=== PATIENT | male | born 1940 | race Caucasian/White ===

== ENCOUNTER 2017-02-14 22:43 | Emergency (ER) | payer MEDICARE, OTHER ==
[~2017-02-14] VITALS: Ht 172.7 cm; Wt 88.4 kg
[2017-02-14 22:43] VITALS: Ht 172.7 cm; Wt 88.4 kg
[~2017-02-14 22:43] MED LIST: ASPI-664 PO; GEMF600T PO; LISI-523 PO; TICA90TA PO
[2017-02-14] MEDS ORDERED: IOHEXOL 300MG/ML 150 ML BTL ONE ×2 (22:54→23:33)
[2017-02-14] MEDS ORDERED: SOD CHLORIDE 0.9% 100 ML ONE ×2 (22:54→23:33)
[2017-02-14 22:58] LABS: BASOPHILS % 0.4 % (0.0-2.0); EOSINOPHILS % 0.4 % (0.0-7.0); HEMOGLOBIN 14.8 g/dl (14.0-18.0); LYMPHOCYTES % 25.6 % (15.0-51.0); MEAN CORPUSCULAR HEMOGLOBIN 33.6 pg (29.0-33.0); MEAN CORPUSCULAR VOLUME 90.7 fl (82.0-101.0); MONOCYTE # 0.5 10^3/ul (0.3-0.9); MONOCYTES % 6.8 % (0.0-11.0); NEUTROPHILS % 66.5 % (39.0-77.0); PLATELET COUNT 140 10^3/UL (140-415); POSITIVE DIFF @See below; RED BLOOD COUNT 4.41 10^6/ul (4.70-6.10); RED CELL DISTRIBUTION WIDTH 12.3 % (11.5-14.5); WHITE BLOOD COUNT 7.7 10^3/ul (4.8-10.8)
[2017-02-14 23:10] LABS: MEAN PLATELET VOLUME 9.2 fl (7.4-10.4)
--- NOTE | 2017-02-14 23:11 | RADRPT ---
AMENDMENT: 02/24/2017 11:06:46 PM Toshia Chisholm M.D One or more of the following dose reduction techniques were used: - Automated exposure control. - Adjustment of the mA and/or kV according to patient size. - Use of iterative reconstruction technique. PROCEDURE: CT HEAD WITHOUT CONTRAST: CLINICAL INDICATION: 76 years of age, male. Stroke code. Expressive aphasia. COMPARISON: None available. TECHNIQUE: CT of the head was performed without IV contrast. Sagittal and coronal reformations were constructed. Dose information: The estimated radiation dose (CTDI vol mGy) for each series in this exam is 45 . The estimated cumulative dose (DLP mGy-cm) is 810 . FINDINGS: Parenchyma: Negative for acute intracranial hemorrhage, significant mass effect or midline shift. There are nonspecific patchy low density changes in the supratentorial deep white matter that are no nspecific but likely due to chronic small vessel ischemia. Negative for evidence of large territoria l avascular infarct on CT. Mild diffuse cerebral tissue loss. Mild intracranial atherosclerosis inv olving the cavernous carotid arteries. Negative for hyperdense thrombus. Ventricles and extra-axial spaces: Prominence of the ventricles proportionate to the sulci in keepin g with cerebral tissue loss. No abnormal extra-axial fluid collections are identified. Visualized paranasal sinuses: Clear. Mastoid air cells: Clear. Bones: No focal abnormality. Additional comment: None. IMPRESSION: 1. Negative for acute intracranial hemorrhage or significant mass effect. Negative for CT evidence of large territory vascular infarct. 2. Nonspecific patchy low density changes in the supratentorial deep white matter are nonspecific b ut likely due to chronic small vessel ischemia. If there is concern for recent ischemia, consider MR I brain for further evaluation. 3. Intracranial atherosclerosis. Findings were discussed with Dr. Aly Rondon by Dr. Toshia Chisholm on February 14, 2017 at 11:05 PM. RPTAT: HCTS Conner Chisholm Physician Date Time Electronically viewed and signed by Conner Chisholm Physician on 02/24/2017 23:07 CS/
[2017-02-14 23:17] LABS: ALANINE AMINOTRANSFERASE 42 IU/L (13-69); ALBUMIN 4.4 g/dl (3.3-4.9); ALBUMIN/GLOBULIN RATIO 1.46; ALKALINE PHOSPHATASE 85 IU/L (42-121); ANION GAP 13 (8-16); ASPARTATE AMINO TRANSFERASE 40 IU/L (15-46); BILIRUBIN,INDIRECT 0.5 mg/dl (0-1.1); BILIRUBIN,TOTAL 0.5 mg/dl (0.2-1.3); BLOOD UREA NITROGEN 14 mg/dl (7-20); CARBON DIOXIDE 28 mmol/L (21-31); CHLORIDE 102 mmol/L (97-110); CREATININE 0.98 mg/dl (0.61-1.24); GLUCOSE 148 mg/dl (70-220); POTASSIUM 4.6 mmol/L (3.5-5.1); SODIUM 138 mmol/L (135-144); TOTAL PROTEIN 7.4 g/dl (6.1-8.1)
[2017-02-14 23:18] LABS: ETHANOL < 10.0 mg/dl
--- NOTE | 2017-02-14 23:19 | RADRPT ---
PROCEDURE: XR Chest. CLINICAL INDICATION: Cerebrovascular accident. TECHNIQUE: Single frontal view. COMPARISON: 03/10/2015. FINDINGS: The lungs are clear. The heart is enlarged. There is no pleural effusion. There is no pneumothorax. IMPRESSION: 1. Cardiomegaly. 2. Clear lungs. RPTAT: QQ .Vernon Benedict MD, MD Date Time Electronically viewed and signed by .Vernon Benedict MD, MD on 02/14/2017 23:19 .R/
[2017-02-14 23:24] LABS: INR 0.92; PROTIME 12.4 Sec (12.2-14.2)
[2017-02-14 23:25] LABS: PARTIAL THROMBOPLASTIN TIME 24.2 Sec (25.0-35.0)
[2017-02-14 23:35] LABS: TROPONIN-I < 0.012 ng/ml (0.00-0.12)
--- NOTE | 2017-02-14 23:38 | RADRPT ---
AMENDMENT: 02/25/2017 12:44:09 AM Toshia Chisholm M.D One or more of the following dose reduction techniques were used: Automated exposure control. Adjustment of the mA and/or kV according to patient size. Use of iterative reconstruction technique. 3-D post processing was performed in maximum intensity projection images were reconstructed on PACS. PROCEDURE: CTA head and neck. CLINICAL INDICATION: 76 years of age, male. Expressive aphasia. TECHNIQUE: A noncontrast CT the brain was performed. Subsequently, direct spiral 0.63 mm axial se ctions were obtained through the cervical and intracranial vasculature with the use of 100 mL of con trast. Axial MIP, coronal, and sagittal reformats were obtained. The images were reviewed on a PACS workstation. CTDI vol: 78 and 17 mGy. DLP: 713.5 mGy-cm. COMPARISON: CT head from the same day FINDINGS: BRAIN (POST-CONTRAST): Enhancement: No abnormal enhancement. Additional comment: None. CTA NECK/ EXTRACRANIAL ANGIOGRAM: Proximal great vessels: Normal cervical branching. No flow-limiting stenosis or dissection. No aneu rysm. Cervical vessels: No flow-limiting stenosis or dissection in the bilateral cervical carotid or verte bral arteries. Internal carotid arteries are tortuous that may be seen with hypertension. There is mild atherosclerosis at the left carotid bulb. Additional comment: None. CTA HEAD/ INTRACRANIAL ANGIOGRAM: Anterior circulation: No flow-limiting stenosis or aneurysm is identified. No vascular malformation is identified. Cavernous carotid arteries are ectatic. Left M1 segment bifurcates early. There is variant anterior cerebral artery anatomy. Posterior circulation: No flow-limiting stenosis or aneurysm is identified. No vascular malformation is identified. Dural venous sinuses: Patent. Additional comment: None. LUNG APICES: No significant abnormality. BONES: There are bulky anterior bridging osteophytes in the cervical spine and upper thoracic spine in keeping with DISH. IMPRESSION: 1. Negative for evidence of hemodynamically significant stenosis or occlusion of the major cervical or intracranial arteries. 2. Negative for evidence of dissection, aneurysm, or vascular malformation. Internal carotid arterie s are tortuous and cavernous carotid arteries are ectatic that may be seen with hypertension. 3. Negative for abnormal intraparenchymal enhancement. There are nonspecific low density changes in the supratentorial deep white matter. If there is concern for recent ischemia, consider brain MRI. Findings were discussed with Dr. Aly Rondon by Dr. Toshia Chisholm on February 14, 2017 at 11:30 p.m. . RPTAT: HCTS Conner Chisholm, Physician Date Time Electronically viewed and signed by Conner Chisholm, Physician on 02/25/2017 00:45 CS/
--- NOTE | 2017-02-14 23:41 | STROKE ---
Date/Time of Note Date/Time of Note DATE: 02/15/17 TIME: 02:34 Patient Information General Arrival Date Age 76 Gender male Weight 88.4 kg Vital Signs Vital Signs Vital Signs Date Time Temp Pulse Resp B/P Pulse Ox O2 Delivery O2 Flow Rate FiO2 02/14/17 22:43 97.5 80 12 153/100 98 Patient History Past Medical History None Past Surgical History None Current Medications Anti-Coagulants: None Anti-Platelets: ASA 81mg Allergies: Coded Allergies: No Known Allergies (Unverified Allergy, Unknown, 03/10/15) Labs Hematology Labs Hematology Test 02/14/17 22:50 White Blood Count 7.710^3/ul (4.8-10.8) Red Blood Count 4.4110^6/ul (4.70-6.10) Hemoglobin 14.8g/dl (14.0-18.0) Hematocrit 40.0% (42.0-52.0) Mean Corpuscular Volume 90.7fl (82.0-101.0) Mean Corpuscular Hemoglobin 33.6pg (29.0-33.0) Mean Corpuscular Hemoglobin Concent 37.0g/dl (32.0-37.0) Red Cell Distribution Width 12.3% (11.5-14.5) Platelet Count 73099^3/UL (140-415) Mean Platelet Volume 9.2fl (7.4-10.4) Neutrophils % 66.5% (39.0-77.0) Lymphocytes % 25.6% (15.0-51.0) Monocytes % 6.8% (0.0-11.0) Eosinophils % 0.4% (0.0-7.0) Basophils % 0.4% (0.0-2.0) Nucleated Red Blood Cells % 0.0/100WBC (0.0-0.0) Neutrophils # (Manual) 510^3/ul (1.7-7.5) Lymphocytes # 2.010^3/ul (0.8-2.9) Monocytes # 0.510^3/ul (0.3-0.9) Eosinophils # 0.010^3/ul (0.0-0.5) Basophils # 0.010^3/ul (0.0-0.1) Nucleated Red Blood Cells # 0.010^3/ul (0.0-0.0) Chemistry Labs Chemistry Test 02/14/17 22:50 02/14/17 23:09 Sodium Level 138mmol/L (135-144) Potassium Level 4.6mmol/L (3.5-5.1) Chloride Level 102mmol/L (97-110) Carbon Dioxide Level 28mmol/L (21-31) Anion Gap 13 (8-16) Blood Urea Nitrogen 14mg/dl (7-20) Creatinine 0.98mg/dl (0.61-1.24) Glucose Level 148mg/dl (70-220) Hemoglobin A1c 5.2% (0-5.9) Calcium Level 9.0mg/dl (8.4-10.2) Total Bilirubin 0.5mg/dl (0.2-1.3) Direct Bilirubin 0.00mg/dl (0.00-0.20) Indirect Bilirubin 0.5mg/dl (0-1.1) Aspartate Amino Transf (AST/SGOT) 40IU/L (15-46) Alanine Aminotransferase (ALT/SGPT) 42IU/L (13-69) Alkaline Phosphatase 85IU/L (42-121) Total Protein 7.4g/dl (6.1-8.1) Albumin 4.4g/dl (3.3-4.9) Globulin 3.00g/dl (1.3-3.2) Albumin/Globulin Ratio 1.46 Bedside Glucose 150mg/dL (70-220) Coagulation Labs: Coagulation Test 02/14/17 22:50 Prothrombin Time 12.4Sec (12.2-14.2) Prothrombin Time Ratio 1.0 INR International Normalized Ratio 0.92 Activated Partial Thromboplast Time 24.2Sec (25.0-35.0) History & Physical History of Present Illness 76 yo M with no PMH presents with onset of speech arrest at 10 pm. Baseline function is wnl. No prior h/o stroke or IPH. No trauma. No recent illness. No motor impairment. Onset of symptoms observed. CT head without acute findings. CTA without large vessel occlusion. No prior similar episodes. BG wnl. Chemistry and CBC wnl. No fever. Hx per interpretor. Review of Systems All Other Systems: Reviewed and Negative NIH Stroke Scale NIH Stroke Scale 1A - Level of Conciousness: 0 - Alert keenly [id number] LOC Questions: 1 - Anwers one question2 - Best Gaze: 0 - Normal3 - Visual: 0 - No visual loss4 - Facial Palsy: 0 - No visual loss5A - Motor Arm - Left: 0 - No [id number] - Motor Arm - Right: 0 - No wahga4M - Motor Leg - Left: 0 - No axacz4P - Motor Leg - Right: 0 - No drift7 - Limb Ataxia: 0 - Absent8 - Sensory: 0 - Normal9 - Best Language: 3 - Mute or global aphasiaDysarthria: 2 - [id number] - Extinction and inattentio: 0 - No abnormality Date/Time Recorded DATE: 02/15/17 TIME: 02:34 Submitted By Joselito Cabrera t-PA Imaging Review Imaging Reviewed: Yes Date/Time Imaging Reviewed DATE: 02/15/17 TIME: 34 Reason Not Reviewed No acute findings Imaging Findings No acute findings Inclusion/Exclusion Criteria tPA recommended. t-PA Administration Weight 88.4 kg Bolus (mg): 7 t-PA Recommendation Date/Time 11:25 total dose 79 mg 7.9 mg over first minute. Remainder over 1 hour. Recommedation submitted by Joselito Cabrera Recommendations Impression Cause: Other Diagnosis Possible ischemic stroke IV tPA recommended Hydrate with saline No anti-platelets or anti-coagulants for 24 hours Hold tPA for bleeding, neurologic detrioration, BP out of range, or new severe CASH and callme. MRI brain Admit to stroke unit Check HgA1C and lipid profile BP goal < 180 / 105 mm Hg Keep on tele Echo with bubble study JOSELITO CABRERA MD Feb 14, 2017 23:40
--- NOTE | 2017-02-14 23:54 | ERA ---
ER Documentation Chief Complaint Date/Time DATE: 02/14/17 TIME: 23:49 Chief Complaint BIB RA FROM HOME W/ ALOC [id number] [employer]NAG[employer]IST HPI This is a 76-year-old Lebanese-speaking male who arrives via EMS for potential stroke. History is provided that approximately 30 minutes to 1 hour prior to arrival the patient stopped speaking and was minimally responsive. EMS reports that the patient was moving all 4 extremities and seemed to be responding to simple commands but could not speak. The family gives an onset around 9:42 PM. Initially I used a library monitor and later the family arrived. The patient could not verbally provide a response. In the remainder of HPI was limited. No report of falls seizures or trauma. ROS All systems reviewed and are negative except as per history of present illness. Medications Home Meds Active Scripts Lisinopril* (Zestril*) 5 Mg Tablet, 5 MG PO DAILY, #30 TAB Prov:MIGUEL LIAO 03/12/15 Ticagrelor* (Brilinta*) 90 Mg Tablet, 90 MG PO BID, #60 Prov:MIGUEL LIAO 03/12/15 Gemfibrozil* (Lopid*) 600 Mg Tab, 600 MG PO BID, #60 Prov:MIGUEL LIAO 03/12/15 Reported Medications Aspirin* (Aspirin* EC) 81 Mg Tablet.dr, 81 MG PO DAILY, TAB 03/10/15 Allergies Allergies: Coded Allergies: No Known Allergies (Unverified Allergy, Unknown, 03/10/15) PMhx/Soc History of Surgery: Yes (2 STENTS) Anesthesia Reaction: No Hx Neurological Disorder: No Hx Respiratory Disorders: No Hx Cardiac Disorders: Yes (HYPERCHOLESTEROLEMIA AND HYPERTENSION.) Hx Psychiatric Problems: No Hx Miscellaneous Medical Probl: No Hx Alcohol Use: Yes (SOCIALLY) Hx Substance Use: No Hx Tobacco Use: No Smoking Status: Never smoker FmHx Family History: No diabetes Physical Exam Vitals Vital Signs Date Time Temp Pulse Resp B/P Pulse Ox O2 Delivery O2 Flow Rate FiO2 02/15/17 00:25 74 12 136/92 98 02/15/17 00:10 68 10 135/93 97 02/14/17 23:55 70 10 140/93 97 02/14/17 23:40 66 11 146/96 97 02/14/17 22:43 97.5 80 12 153/100 98 Physical Exam General: Well developed, well nourished, no acute distress Head: Normocephalic, atraumatic. Eyes: Pupils equally reactive, EOM intact ENT: Moist mucous membranes Neck: Supple, no lymphadenopathy Respiratory: Lungs clear bilaterally, no distress Cardiovascular: RRR, no murmurs, rubs, or gallops Abdominal: Soft, non-tender, non-distended, no peritoneal signs : Deferred MSK: No edema, no unilateral swelling, 4/5 strength Neurologic: Alert and following simple commands but has expressive aphasia, moving all extremities with generalized weakness, expressive aphasia, no focal weakness, no cerebellar signs Skin: No rash Psych: Normal mood Result Diagram: 02/14/17224902/14/172249 Results 24 hrs Laboratory Tests Test 02/14/17 22:50 02/14/17 23:09 White Blood Count 7.710^3/ul Red Blood Count 4.4110^6/ul Hemoglobin 14.8g/dl Hematocrit 40.0% Mean Corpuscular Volume 90.7fl Mean Corpuscular Hemoglobin 33.6pg Mean Corpuscular Hemoglobin Concent 37.0g/dl Red Cell Distribution Width 12.3% Platelet Count 17292^3/UL Mean Platelet Volume 9.2fl Neutrophils % 66.5% Lymphocytes % 25.6% Monocytes % 6.8% Eosinophils % 0.4% Basophils % 0.4% Nucleated Red Blood Cells % 0.0/100WBC Neutrophils # (Manual) 510^3/ul Lymphocytes # 2.010^3/ul Monocytes # 0.510^3/ul Eosinophils # 0.010^3/ul Basophils # 0.010^3/ul Nucleated Red Blood Cells # 0.010^3/ul Prothrombin Time 12.4Sec Prothrombin Time Ratio 1.0 INR International Normalized Ratio 0.92 Activated Partial Thromboplast Time 24.2Sec Sodium Level 138mmol/L Potassium Level 4.6mmol/L Chloride Level 102mmol/L Carbon Dioxide Level 28mmol/L Anion Gap 13 Blood Urea Nitrogen 14mg/dl Creatinine 0.98mg/dl Glucose Level 148mg/dl Hemoglobin A1c 5.2% Calcium Level 9.0mg/dl Total Bilirubin 0.5mg/dl Direct Bilirubin 0.00mg/dl Indirect Bilirubin 0.5mg/dl Aspartate Amino Transf (AST/SGOT) 40IU/L Alanine Aminotransferase (ALT/SGPT) 42IU/L Alkaline Phosphatase 85IU/L Troponin I < 0.012ng/ml Total Protein 7.4g/dl Albumin 4.4g/dl Globulin 3.00g/dl Albumin/Globulin Ratio 1.46 Ethyl Alcohol Level < 10.0mg/dl Bedside Glucose 150mg/dL Current Medications Medications (Trade) Dose Ordered Sig/Jose Route PRN Reason Start Time Stop Time Status Last Admin Dose Admin Alteplase, Recombinant (Activase) 8 mg BOLUS OVER 1 MIN ONCE IV* 02/15/17 00:00 02/15/17 00:01 DC 02/14/17 23:39 Alteplase, Recombinant 71.6 mg 71.6 mg ISCHEMIC STROKE ONCE IV* 02/15/17 00:00 02/15/17 00:01 DC 02/14/17 23:40 Sodium Chloride (NS) 50 ml @ 0 mls/hr FLUSH AFTER TPA ONCE IV 02/15/17 00:00 02/15/17 00:01 DC IV Flush 10 ml 10 ml STK-MED ONCE .ROUTE 02/14/17 23:33 02/14/17 23:34 DC 02/14/17 23:35 Sodium Chloride (NS) 100 ml @ ud STK-MED ONCE .ROUTE 02/14/17 23:33 02/14/17 23:34 DC 02/14/17 23:35 Iohexol (Omnipaque 300mg/ ml) 150 ml STK-MED ONCE .ROUTE 02/14/17 23:33 02/14/17 23:34 DC 02/14/17 23:34 Procedures/MDM EKG, MONITORS, & DIAGNOSTIC IMAGING: EKG: I reviewed and interpreted a 12-lead EKG. Rhythm: Normal sinus rhythm Ectopy: None Arrhythmia: None Intervals: No abnormalities ST segments: No elevations or depressions T waves: No contiguous inversions Interpretation: No acute cardiac ischemia Chest x-ray: I reviewed and interpreted a 1 view of the chest Mediastinum: No enlargement Cardiac silhouette: No cardiomegaly Airspace: Clear lung cui bilaterally without evidence of pneumothorax Bones: No evidence of fracture Interpretation: No acute cardiopulmonary process CT Brain: No evidence of acute intracranial process per radiology CTA Head and Neck: No evidence of flow related stenosis or thrombus per radiology LAB INTERPRETATION: No coagulopathy MEDICAL DECISION MAKING: The patient presents with acute onset of neurologic change just prior to arrival with expressive aphasia. Otherwise the patient has mild global dysfunction. Unclear etiology. However, this is very concerning for stroke syndrome and a stroke code was activated. The patient does not have evidence of intoxication, trauma, fevers or chills. No alternative explanation, no evidence of seizure. ER COURSE: Stroke assessment and timing: Onset of symptoms: 9:42 PM Arrival to ED: 3 Stroke code activation: [address] scan: [address]: 2305 Initial neurology evaluation: 2312 Conversation(s) with neurology: 2315 NIHSS: 5 TPA decision-making: Given that the patient has acute onset of neurologic deficit within 1 hour presentation with no alternative explanation the patient is a TPA candidate. The risks, benefits, alternatives were discussed with the patient's family who verbalized understanding and provided informed consent along with Dr. Cabrera TPA bolus timin TPA drip timin Reevaluation after TPA: The patient continues to have global dysfunction but expressive aphasia, no interval change he continues to protect his airway Stroke neurologist on-call: Dr. Cabrera Critical Care Note: Total time: 52 minutes Indication/Organ System Threat: Acute neurologic deficit and stroke code activation that requires emergent evaluation and assessment to prevent neurologic compromising collapse. I spent the above amount of critical care time with the patient, not including billable procedures. This included chart review, consultations, repeat bedside evaluations, and titration of appropriate medications to prevent cardiopulmonary or respiratory collapse. The patient CTA does not show an evidence of an acute thrombus however potential transfer to a [facility] center would be reasonable. I reached out to [facility] who has refused the case given normal CTA. I will reach out to [facility]. I spoke to Dr. Malave, at [facility] who has accepted the patient at [phone]. Pending transfer at this time. The patient does not require airway protection prior to transfer as he is currently protecting his airway. Reevaluation at 12:13 AM the patient verbalized that he had to urinate. This is a clinical improvement. I kept the patient and/or family informed of laboratory and diagnostic imaging results throughout the emergency room course. DISPOSITION PLAN: Transfer to [facility] for comprehensive stroke care the benefits of transfer outweigh the risks. Family agrees. Departure Diagnosis: Primary Impression: Acute ischemic stroke Additional Impression: Expressive aphasia Condition: Stable GERALD ESPARZA MD Feb 14, 2017 23:52
[2017-02-15] MEDS ORDERED: ALTEPLASE (tPA) 1 MG/ML BOLUS SYG IV* ONE
[2017-02-15] MEDS ORDERED: ALTEPLASE 100 MG INJ IV* ONE
[2017-02-15] MEDS ORDERED: SOD CHLORIDE 0.9% 50 ML IV ONE
== END 2017-02-15 01:02 | disposition short-term general hospital (02) ==
LOC: E/R 22:43
DX: I63.9 Cerebral infarction, unspecified (principal); F80.1 Expressive language disorder; R40.2132 Coma scale, eyes open, to sound, at arrival to emergency department; R40.2222 Coma scale, best verbal response, incomprehensible words, at arrival to emergency department; R40.2362 Coma scale, best motor response, obeys commands, at arrival to emergency department; Z98.61 Coronary angioplasty status; Z79.82 Long term (current) use of aspirin
CPT/HCPCS: 36415; 37195; 70450; 70496; 70498; 71010; 80053; 80306; 82962; 83036; 84484; 85025; 85610; 85730; 93005; 99291; J2997; Q9967

== ENCOUNTER 2017-04-13 00:35 | Emergency (ER) | payer MEDICARE, OTHER ==
[~2017-04-13] VITALS: Ht 167.6 cm; Wt 87.0 kg
[2017-04-13 00:52] VITALS: Ht 167.6 cm; Wt 87.0 kg
--- NOTE | 2017-04-13 01:32 | ERD ---
ER Documentation Chief Complaint Chief Complaint Headache HPI The patient is a 77-year-old male, presenting to the ER because of high blood pressure, difficult to control. He complains that whenever his blood pressure is high he has headache. he complained of left-sided headache that began about 10 PM, he took his blood pressure, it was high therefore he took clonidine that bring down the blood pressure. He feels much better now. He denies any syncope , near syncope, dizziness, neck pain, chest pain, dyspnea, abdominal pain, vomiting He does not smoke nor drink. Past medical history: CAD, dyslipidemia, hypertension Past surgical history: Stent PCI ROS All systems reviewed and are negative except as per history of present illness. Medications Home Meds Reported Medications Clopidogrel Bisulfate* (Clopidogrel Bisulfate*) 75 Mg Tablet, 75 MG PO DAILY, # 30 TAB 04/13/17 Atorvastatin* (Atorvastatin*) 80 Mg Tablet, 80 MG PO QHS, #30 TAB 04/13/17 Allergies Allergies: Coded Allergies: No Known Allergies (Unverified Allergy, Unknown, 03/10/15) PMhx/Soc History of Surgery: Yes (2 STENTS) Anesthesia Reaction: No Hx Neurological Disorder: No Hx Respiratory Disorders: No Hx Cardiac Disorders: Yes (HYPERCHOLESTEROLEMIA AND HYPERTENSION.) Hx Psychiatric Problems: No Hx Miscellaneous Medical Probl: No Hx Alcohol Use: Yes (SOCIALLY) Hx Substance Use: No Hx Tobacco Use: No Physical Exam Vitals Vital Signs Date Time Temp Pulse Resp B/P Pulse Ox O2 Delivery O2 Flow Rate FiO2 04/13/17 02:10 98.3 20 119/83 98 Room Air 04/13/17 00:52 97.8 88 20 138/94 98 Physical Exam Const: No acute distress. Head: Atraumatic. Eyes: Normal Conjunctiva. ENT: Normal External Ears, Nose and Mouth. Neck: Full range of motion. No meningismus. Resp: Clear to auscultation bilaterally. Cardio: Regular rate and rhythm. Abd: Soft, non distended, normal bowel sounds, non tender. Skin: No petechiae or rashes. Back: No midline or flank tenderness. Ext: No cyanosis, or edema. Neur: Awake and alert. No focal deficit Psych: Normal Mood and Affect. Result Diagram: 04/13/17 0250 04/13/17 0250 Results 24 hrs Laboratory Tests Test 04/13/17 02:50 White Blood Count 5.010^3/ul Red Blood Count 3.8910^6/ul Hemoglobin 13.1g/dl Hematocrit 35.4% Mean Corpuscular Volume 91.0fl Mean Corpuscular Hemoglobin 33.7pg Mean Corpuscular Hemoglobin Concent 37.0g/dl Red Cell Distribution Width 11.9% Platelet Count 99311^3/UL Mean Platelet Volume 8.9fl Neutrophils % 53.5% Lymphocytes % 36.1% Monocytes % 9.0% Eosinophils % 0.8% Basophils % 0.4% Nucleated Red Blood Cells % 0.0/100WBC Neutrophils # 2.710^3/ul Lymphocytes # 1.810^3/ul Monocytes # 0.510^3/ul Eosinophils # 0.010^3/ul Basophils # 0.010^3/ul Nucleated Red Blood Cells # 0.010^3/ul Prothrombin Time 13.7Sec Prothrombin Time Ratio 1.1 INR International Normalized Ratio 1.05 Activated Partial Thromboplast Time 29.2Sec Sodium Level 141mmol/L Potassium Level 3.7mmol/L Chloride Level 108mmol/L Carbon Dioxide Level 24mmol/L Anion Gap 13 Blood Urea Nitrogen 16mg/dl Creatinine 0.82mg/dl Glucose Level 96mg/dl Calcium Level 8.5mg/dl [facility] [id number] Radiology Main Line: [phone] DIAGNOSTIC IMAGING REPORT Patient: YONATHAN LAUREANO : 1940 Age: 77 Sex: M [id number] [id number] DOS: 04/13/17 0139 Ordering MD: KATHY MOCTEZUMA MD Location: E/R Room/Bed: PROCEDURE: CT BRAIN WITHOUT CONTRAST CLINICAL INDICATION: 77-year-old male with dizziness. TECHNIQUE: The study was performed utilizing [employer] VCT 64-slice CT scanner. Direct axial sections were obtained from the foramen magnum to the vertex without the use of intravenous contrast material. Sagittal and coronal reformations were obtained. One or more the following dose reduction techniques were utilized: automated exposure control, adjustment of the mA and/or kV according to patient's size or use of iterative reconstruction technique. The images were viewed on a PACS workstation. CTD/vol = 45.0 mGy; Total Exam DLP = 720.2 mGy-cm. COMPARISON: CT brain February 14, 2017. FINDINGS: There is mild degree of diffuse cortical and central atrophy with compensatory ventricular enlargement. There is no evidence for mass effect or midline shift. There are periventricular areas of decreased density consistent with microangiopathic ischemic changes. There is a small old lacunar infarct identified within the left putamen. There is no evidence for acute intra or extra-axial blood. Calcifications are seen within the intracranial carotid arteries bilaterally. The bony calvarium is intact. There is minimal mucosal thickening within the ethmoid air cells bilaterally and left maxillary sinus. No air-fluid levels are noted. The mastoid air cells are without significant soft tissue. IMPRESSION: 1. Mild diffuse atrophy. 2. Microangiopathic ischemic changes. 3. 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 4. Vascular calcifications. 5. Minimal mucosal thickening ethmoid air cells and left maxillary sinus. .Estevan Lopez MD, MD Date Time Electronically viewed and signed by .Estevan Lopez MD, MD on 04/13/2017 02:41 .M/ CC: KATHY MOCTEZUMA MD EKG: Read by emergency physician Rate/Rhythm: Sinus bradycardia 54 beats/min QRS, ST, T-waves: No ST elevation, no T inversion, Low voltage Impression: Abnormal EKG . MEDICAL MAKING DECISION: The patient is a 77-year-old male, presenting to the ER because of accelerated hypertension that is associated with acute cephalgia. He denies any symptoms now. He is stable for outpatient follow-up The differential diagnoses considered include but are not limited to subarachnoid hemorrhage, occult trauma, CVA, meningitis, encephalitis, hypertension, tension, migraine, cluster, narcotic withdrawal, cervical spine disease. Departure Diagnosis: Primary Impression: Headache Additional Impression: Anemia Condition: Good Comments I discussed the findings with the patient. I advised the patient to follow-up with the primary physician in about 1-2 days, sooner if needed and return if any concern. KATHY MOCTEZUMA MD Apr 13, 2017 01:32
[2017-04-13 02:10] VITALS: TEMP 98.3
[2017-04-13] MEDS ORDERED: CLOP75TA4 PO (02:12)
[2017-04-13] MEDS ORDERED: ATOR80TA75 PO (02:12)
--- NOTE | 2017-04-13 02:41 | RADRPT ---
PROCEDURE: CT BRAIN WITHOUT CONTRAST CLINICAL INDICATION: 77-year-old male with dizziness. TECHNIQUE: The study was performed utilizing [employer] VCT 64-slice CT scanner. Direct axial sections were obtained from the foramen magnum to the vertex without the use of intravenous contrast material. Sagittal and coronal reformations were obtained. One or more the following dose reduction techniques were utilized: automated exposure control, adjustment of the mA and/or kV according to p atient's size or use of iterative reconstruction technique. The images were viewed on a PACS worksta tion. CTD/vol = 45.0 mGy; Total Exam DLP = 720.2 mGy-cm. COMPARISON: CT brain February 14, 2017. FINDINGS: There is mild degree of diffuse cortical and central atrophy with compensatory ventricular enlargeme nt. There is no evidence for mass effect or midline shift. There are periventricular areas of decr eased density consistent with microangiopathic ischemic changes. There is a small old lacunar infarc t identified within the left putamen. There is no evidence for acute intra or extra-axial blood. Barak cifications are seen within the intracranial carotid arteries bilaterally. The bony calvarium is int act. There is minimal mucosal thickening within the ethmoid air cells bilaterally and left maxillary sinus. No air-fluid levels are noted. The mastoid air cells are without significant soft tissue. IMPRESSION: 1. Mild diffuse atrophy. 2. Microangiopathic ischemic changes. 3. 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 4. Vascular calcifications. 5. Minimal mucosal thickening ethmoid air cells and left maxillary sinus. .Estevan Lopez MD, Date Time Electronically viewed and signed by .Estevan Lopez MD, MD on 04/13/2017 02:41 .Jocelyne
[2017-04-13 03:03] LABS: BASOPHILS % 0.4 % (0.0-2.0); EOSINOPHILS % 0.8 % (0.0-7.0); HEMATOCRIT 35.4 % (42.0-52.0); HEMOGLOBIN 13.1 g/dl (14.0-18.0); LYMPHOCYTES # 1.8 10^3/ul (0.8-2.9); LYMPHOCYTES % 36.1 % (15.0-51.0); MEAN CORPUSCULAR HEMOGLOBIN 33.7 pg (29.0-33.0); MEAN PLATELET VOLUME 8.9 fl (7.4-10.4); MONOCYTE # 0.5 10^3/ul (0.3-0.9); NEUTROPHIL # 2.7 10^3/ul (1.6-7.5); NEUTROPHILS % 53.5 % (39.0-77.0); PLATELET COUNT 133 10^3/UL (140-415); RED BLOOD COUNT 3.89 10^6/ul (4.70-6.10); RED CELL DISTRIBUTION WIDTH 11.9 % (11.5-14.5)
[2017-04-13 03:21] LABS: INR 1.05; PROTIME 13.7 Sec (12.2-14.2); PT RATIO 1.1
[2017-04-13 03:22] LABS: PARTIAL THROMBOPLASTIN TIME 29.2 Sec (25.0-35.0)
[2017-04-13 03:25] LABS: CALCIUM 8.5 mg/dl (8.4-10.2); CREATININE 0.82 mg/dl (0.61-1.24); POTASSIUM 3.7 mmol/L (3.5-5.1)
[2017-04-13 04:29] VITALS: BP 113/80; PULSE 60; RESP 18
== END 2017-04-13 04:29 | disposition home or self-care (01) ==
LOC: E/R 00:35
DX: R51 Headache (principal); R40.2252 Coma scale, best verbal response, oriented, at arrival to emergency department; D64.9 Anemia, unspecified; I10 Essential (primary) hypertension; I25.10 Atherosclerotic heart disease of native coronary artery without angina pectoris; R40.2142 Coma scale, eyes open, spontaneous, at arrival to emergency department; R40.2362 Coma scale, best motor response, obeys commands, at arrival to emergency department; R07.9 Chest pain, unspecified
CPT/HCPCS: 70450; 80048; 85025; 85610; 85730; 93005

== ENCOUNTER 2018-09-11 07:38 | Observation (INO) | payer MEDICARE, OTHER ==
[2018-09-11] VITALS (30 sets, daily range): BP systolic 111–135; BP diastolic 72–92; PULSE 46–73; RESP 14–25; Ht 162.6 cm; Wt 86.4 kg
[~2018-09-11] VITALS: Ht 162.6 cm; Wt 86.4 kg
[~2018-09-11 07:38] MED LIST changes: -ASPI-664 PO; +ATOR-2 PO; +CLOP75TA19 PO; +DIAZEPAM 5 MG TAB PO SCH; +DIPHENHYDRAMINE 50 MG CAP PO SCH; +FAMOTIDINE 20 MG TAB PO SCH; -GEMF600T PO; -LISI-523 PO; +SOD CHLORIDE 0.45% 1,000 ML IV SCH; -TICA90TA PO
[2018-09-11] MEDS ORDERED: CLON-379 PO (08:35)
[2018-09-11] MEDS ORDERED: AMLO5TAB4 PO (08:35)
[2018-09-11] MEDS ORDERED: ASPI-817 PO (08:35)
[2018-09-11] MEDS ORDERED: ALPR0.5T PO (08:35)
[2018-09-11] MEDS ORDERED: CLOP75TA27 PO (08:35)
[2018-09-11] MEDS ORDERED: PREL60L PO (08:35)
[2018-09-11] MEDS ORDERED: METO-335 PO (08:35)
[2018-09-11] MEDS ORDERED: LIDOCAINE 1% (MDV) 20 ML INJ ONE (08:50)
[2018-09-11] MEDS ORDERED: IODIXANOL LOCM 100 ML BTL ONE ×3 (08:50→10:46)
[2018-09-11] MEDS ORDERED: MIDAZOLAM 1 MG/ML 2 ML INJ ONE (08:51)
[2018-09-11] MEDS ORDERED: HEPARIN 1000 UNITS/ML 10 ML INJ ONE (08:51)
[2018-09-11] MEDS ORDERED: VERAPAMIL 5 MG INJ ONE (08:52)
[2018-09-11] MEDS ORDERED: NITROGLYCERIN (IC) 100 MCG/ML INJ ONE (08:52)
[2018-09-11] MEDS ORDERED: FENTAnyl 50 MCG/ML VIAL ONE (08:52)
[2018-09-11] MEDS ORDERED: CLOPIDOGREL 75 MG TAB ONE (10:51)
[2018-09-11] MEDS ORDERED: SOD CHLORIDE 0.9% 1,000 ML IV SCH (11:06)
--- NOTE | 2018-09-11 11:06 | SIPON ---
Date/Time of Note Date/Time of Note DATE: 09/11/18 TIME: 11:05 Operative Report Preoperative Diagnosis 1.chest pain Postoperative Diagnosis 1.obstructive cad s/p stent x 1 to LAD and x 2 to LCX Operation/Procedure Performed 1.[facility] 2.PTCa/stent x 1 to LAD and x 2 to LCX Surgeon see signature line contract administrative assistant 1.[place]ris Anesthesia: moderate sedation Estimated blood loss: minimal Transfusion Required none Specimen none Grafts/Implants none Complications none CAMERON MEDINA Sep 11, 2018 11:06
[2018-09-11] MEDS ORDERED: AL HYDROX/MG HYDROX/SIMETH 30 ML CUP PO PRN (11:30)
[2018-09-11] MEDS ORDERED: ACETAMINOPHEN 325 MG TAB PO PRN (11:30)
[2018-09-11] MEDS ORDERED: OXYCODONE/ACETAMINOPHEN (5/325) TAB PO PRN (11:30)
[2018-09-11] MEDS ORDERED: ZOLPIDEM 5 MG TAB PO PRN (11:30)
[2018-09-11] MEDS ORDERED: ONDANSETRON 4 MG INJ IV PRN (11:30)
--- NOTE | 2018-09-11 15:34 | RADRPT ---
Vent Rate: 58 bpm RR Interval: 0 msec NE Interval: 212 msec QRS Duration: 80 msec QT Interval: 438 msec QTC Interval: 429 msec P-R-T [place]: 39 - 15 - 59 degrees Sinus bradycardia with sinus arrhythmia with 1st degree AV block Otherwise normal ECG Electronically Signed By: Mook Kang
--- NOTE | 2018-09-11 15:34 | RADRPT ---
Vent Rate: 57 bpm RR Interval: 0 msec AL Interval: 200 msec QRS Duration: 82 msec QT Interval: 402 msec QTC Interval: 391 msec P-R-T [place]: 37 - 27 - 45 degrees Sinus bradycardia Otherwise normal ECG Electronically Signed By: Mook Kang
--- NOTE | 2018-09-11 18:59 | CARRPT ---
DATE OF PROCEDURE: 09/11/2018 TYPE OF PROCEDURE: 1. Left heart catheterization. 2. Coronary angiography. 3. Percutaneous transluminal coronary angioplasty with placement of Synergy drug-eluting stent x1 to proximal LAD, 3.5 x 16 mm. 4. Percutaneous transluminal coronary angioplasty with placement of Xience drug-eluting stents x2 to distal circumflex, 3.0 x 18 mm and 3.0 x 8 mm. 5. Moderate conscious sedation. 6. Measure of left ventricular end-diastolic pressure. ATTENDING PHYSICIAN: Cameron Hutchison MD REFERRING PHYSICIAN: Self-referred. INDICATION: Chest pain refractory to medical therapy, consistent with angina with positive stress te st findings for inferolateral ischemia. TYPE OF ANESTHESIA: Conscious and local. BRIEF HISTORY AND HOSPITAL COURSE: Mr. 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 The patient was placed in a significant amount of therapy and continued to have chest pain. He was then brought to cardiac animal laboratory technician in order to assess the possibility of recurrent significant obstructive coronary artery disease lending to symptom of chest pain and subsequent positive stress test findings. DESCRIPTION OF PROCEDURE: After informed consent was obtained, the patient was brought to the [facility] Cardiac Search Strategist where his right radial area was prepped and draped in usual s terile fashion. A 2% lidocaine was infiltrated into the right radial area in order to achieve adequa te local anesthesia. Using the modified Seldinger technique, the radial artery was cannulated and a 6-Somali arterial barber th was placed. A 6-Somali JL3.5 catheter was used to cannulate the left main coronary ostium. With contrast injection, multiple views of the left coronary system were obtained. JL3.5 was removed over a guidewire and a JR4 was used to cannulate the right coronary arterial ostium. With contrast injec tion, multiple views of the right coronary system were obtained. JR was then additionally used to cr oss the LV. LVEDP was measured and pulled back across the aortic valve to assess for significant gra dient which there was not and removed. Subsequently at this time, we moved directly into an interventional procedure. The patient had been given 5000 units of heparin with his radial cocktail and ACT checked, returning with an adequate pre- interventional ACT. Subsequently at this time, a Q3 guide was used to cannulate the left main koehler ry ostium. A 0.014 balance middleweight guidewire was passed distal to the lesion in LAD. The lesio n was pretreated with a 2.5 x 12 mm balloon up to 16 to 18 atmospheres. This was removed. The lesio n was stented with a 3.5 x 16 mm drug-eluting stent deployed at 14 atmospheres and post dilated with the stent delivery system at 16 atmospheres. The stent delivery was removed and there was a waist in the proximal portion of the stent. Subsequently, a 4.0 x 8 mm noncompliant balloon was used to furt her post dilate the proximal portion of the stent and then into the stent overlap area. No residual waist thereafter. The balloon was removed and the wire was pulled back and now repositioned down distally into the circ umflex where there existed a second lesion. This was pretreated with a 2.5 x 12 mm balloon up to 14 atmospheres. This was removed and the lesion was stented with a 3.0 x 18 mm drug-eluting stent up to 14 atmospheres x2. Stent delivery system was removed, revealing a distal waist concerning for possi ble edge dissection versus residual disease. Subsequently, a second 3.0 x 8 mm stent was overlapped with the first stent by 1 mm and deployed at 12 atmospheres, post dilated with the stent delivery sys tem up to 14 atmospheres. The stent delivery was then pulled to an overlapped area, and further infl ations were made up to 14 atmospheres. The balloon was removed. Followup angiogram was obtained revealing excellent result following the stent, ROXANNE 3 flow throughou t the vessel, no sign of complication including perforation or dissection. Subsequently at this time , the interventional guide and guidewires were removed. The patient's sheath was removed. TR band wa s applied. This completed the procedure. There were no noted complications. FINDINGS: Coronary angiography: Left main 4 mm, no significant stenosis. Circumflex proximally is a 3.5 mm vessel. Its mid portion has a 20% stenosis. There is a mid-branching obtuse marginal 2 mm with a mid body 20% to 30% stenosis. Circ is a dominant vessel and therefore gives off a left-sided PDA with left-sided PDA having a focal 80% stenosis in its mid portion. There is another branching o btuse marginal 3 mm with no significant focal stenosis. The patient's LAD proximally is a 3.5 mm ves shayy and right before stent had a very focal 80% stenosis. There is a long stented zone with very min imal to no significant in-stent restenosis. There exists a very small diagonal that branches just pr oximally to the stented zone. There is another proximal-branching diagonal over high OM, 2 mm with n o significant focal stenosis. The patient's right coronary artery proximally is a 2.5 mm vessel and is a nonsmall, nondominant vessel thereafter and has no intervening stenosis. HOGSHEAD PRESS OPERATOR AND STENT PLACEMENT: Prior to HOGSHEAD PRESS OPERATOR and stent placement, the patient's LAD had an 80% stenosis. P ost HOGSHEAD PRESS OPERATOR and stent placement, the patient had no residual stenosis, ROXANNE 3 flow throughout the vessel, no signs of complication including perforation or dissection Prior to HOGSHEAD PRESS OPERATOR and stent placement, within the patient's circumflex, there was an 80% stenosis. Post P TA and stent placement, there was no residual stenosis, ROXANNE 3 flow throughout the vessel, no signs o f complication including perforation or dissection. TOTAL FLUOROSCOPY TIME: 74.5 minutes TOTAL CONTRAST: 240 mL IMPRESSION: Two-vessel obstructive coronary artery disease involving a high-grade stenosis in the pa tient's left anterior descending artery just proximal to a previously stented zone. Dictated By: CAMERON VERA/TAZ Conf#: [id number] DID#: [id number]
[2018-09-12] VITALS: BP 145/65; PULSE 71; PULSE 83; RESP 18
--- NOTE | 2018-09-12 00:47 | HP ---
DATE OF ADMISSION: 09/11/2018 CHIEF COMPLAINT: Chest pain. HISTORY OF PRESENT ILLNESS: The patient is a 78-year-old gentleman well known to me because of [facility] hospital admission. The patient has history of coronary artery disease, status post GAS LEAK INSPECTOR and sten ting to the left anterior descending artery back in 2014. The patient was seen by Dr. Medina' group as an outpatient due to chest pain effect to medical treatment. The patient underwent nuclear stres s test which was positive for inferolateral ischemia. The patient was brought in to hospital today a nd underwent PTCA with placement of drug-eluting stent x1 to proximal LAD, and drug-eluting stents x2 to distal circumflex. The patient was diagnosed with 2-vessel obstructive coronary artery disease i nvolving high grade stenosis in the patient's left anterior descending artery just proximal to previo stented zone. The patient after GAS LEAK INSPECTOR, has remained chest pain free. There is no orthopnea, no his tory of diaphoresis. No history of nausea or vomiting. No history of pain in the left upper extremi ty. No history of fever or chills. No history of nausea, vomiting, diarrhea. No history of bleedin g from any site. No history of dysuria or hematuria. No history of focal weakness. REVIEW OF SYSTEMS: The rest of the systems is unremarkable. A total of 12 systems were reviewed and all pertinent positive and negative findings have been described in the HPI. The rest of the review of systems is unremarkable. The patient did not have any leg edema or resting leg pain. No history of claudication. No history of any acute joint swelling. No history of any skin rash. ALLERGIES: NO KNOWN DRUG ALLERGIES. PAST SURGICAL HISTORY: None. FAMILY HISTORY: Negative for diabetes. SOCIAL HISTORY: No smoking or alcohol abuse. PHYSICAL EXAMINATION: GENERAL: The patient is awake, alert. VITAL SIGNS: Temperature 98.2, pulse 69, respiration 19, blood pressure 117/76, O2 saturation 95% on room air. HEENT: Atraumatic, normocephalic. Conjunctivae normal. Oropharynx clear. NECK: Supple. No thyromegaly. CHEST: Fairly clear. No use of accessory muscles. CARDIOVASCULAR: S1, S2 normal. No murmur. ABDOMEN: Soft, nondistended, nontender. Bowel sounds plus. EXTREMITIES: No leg edema. Pedal pulses palpable. SKIN: Without acute rash or ulcer. NEUROLOGIC: The patient is awake, alert, oriented with no gross focal deficit. Exam was limited due to recent PCI. LABORATORY DATA: Done this morning, WBC 6.4, hemoglobin 13.7, platelet 169. Sodium 142, potassium 3 .5, BUN 6, creatinine 0.7, glucose 105, AST 156, ALT 236, alkaline phosphatase 221. Back in 2016, hi s liver enzymes were normal. Lipid panel back in 2014 had revealed triglyceride of 98, HDL 25, and L DL could not be measured. PLAN: The patient was admitted on telemetry floor. The patient will be started on aspirin and Plavi x. We will hold off on statins until liver enzymes are normal. We will continue Norvasc and Toprol as at home. We will repeat complete metabolic panel tomorrow. The patient did have a chest x-ray do ne today, which revealed mild pulmonary venous congestion. Will also obtain followup BNP and CBC in addition to lipid panel and TSH. Further recommendation will depend on patient's hospital course and recommendation from Dr. Medina. Dictated By: ELIO ALFONSO MD AB/NTS Conf#: [id number] DID#: [id number] CC: CAMERON MEDINA MD;*EndCC*
[2018-09-12 04:00] VITALS: BP 119/76; PULSE 62; PULSE 81; RESP 18
[2018-09-12 07:51] VITALS: BP 151/85; PULSE 67; RESP 18
[2018-09-12] MEDS ORDERED: CLOPIDOGREL 75 MG TAB PO SCH (09:00)
[2018-09-12] MEDS: predniSOLONE (3 MG/ML PO SYG) PO SCH ×2 (09:00→10:03)
[2018-09-12] MEDS ORDERED: ASPIRIN (EC) 81 MG TAB PO SCH (09:00)
[2018-09-12] MEDS ORDERED: METOPROLOL (XL) 25 MG TAB PO SCH (09:00)
[2018-09-12] MEDS ORDERED: AMLODIPINE 5 MG TAB PO SCH (09:00)
[2018-09-12 11:35] VITALS: BP 147/83; PULSE 70; RESP 19
--- NOTE | 2018-09-12 12:45 | PN ---
Date/Time of Note Date/Time of Note DATE: 09/12/18 TIME: 12:45 Assessment/Plan VTE Prophylaxis Risk score (from Ns)>0 risk: 6 SCD applied (from Ns): No Lines/Catheters IV Catheter Type (from Nrs): Peripheral IV Assessment/Plan Result Diagram: 09/12/18 0548 09/12/18 0548 Results 24hrs Laboratory Tests Test 09/11/18 22:45 09/12/18 05:48 Urine Color YELLOW Urine Clarity CLEAR Urine pH 7.0 Urine Specific [place] 1.018 Urine Ketones NEGATIVE Urine Nitrite NEGATIVE Urine Bilirubin NEGATIVE Urine Urobilinogen NEGATIVE Urine Leukocyte Esterase NEGATIVE Urine Microscopic RBC 11 H Urine Microscopic WBC 0 Urine Hemoglobin 3+ H Urine Glucose NEGATIVE Urine Total Protein NEGATIVE White Blood Count 7.6 Red Blood Count 4.50 L Hemoglobin 14.2 Hematocrit 40.2 L Mean Corpuscular Volume 89.3 Mean Corpuscular Hemoglobin 31.6 Mean Corpuscular Hemoglobin Concent 35.3 Red Cell Distribution Width 12.5 Platelet Count 163 Mean Platelet Volume 9.2 Immature Granulocytes % 0.400 Neutrophils % 67.8 Lymphocytes % 21.0 Monocytes % 9.1 Eosinophils % 1.3 Basophils % 0.4 Nucleated Red Blood Cells % 0.0 Immature Granulocytes # 0.030 Neutrophils # 5.2 Lymphocytes # 1.6 Monocytes # 0.7 Eosinophils # 0.1 Basophils # 0.0 Nucleated Red Blood Cells # 0.0 Sodium Level 141 Potassium Level 3.5 Chloride Level 104 Carbon Dioxide Level 25 Anion Gap 12 Blood Urea Nitrogen 6 L Creatinine 0.74 Est Glomerular Filtrat Rate mL/min Glucose Level 92 Calcium Level 9.2 Total Bilirubin 1.0 Direct Bilirubin 0.00 Indirect Bilirubin 1.0 Aspartate Amino Transf (AST/SGOT) 89 H Alanine Aminotransferase (ALT/SGPT) 165 H Alkaline Phosphatase 208 H Total Protein 6.6 Albumin 3.7 Globulin 2.90 Albumin/Globulin Ratio 1.27 Triglycerides Level 110 Cholesterol Level 190 LDL Cholesterol, Calculated 116 HDL Cholesterol 52 Cholesterol/HDL Ratio 3.6 Thyroid Stimulating Hormone (TSH) 4.360 Exam/Review of Systems Exam Vitals Vital Signs Date Temp Pulse Resp B/P (MAP) Pulse Ox O2 O2 Flow FiO2 Time Delivery Rate 09/12/18 98.4 70 19 147/83 96 11:35 (104) 09/12/18 Room Air 07:51 Intake and Output 09/11/18 09/11/18 09/12/18 1515:00 23:00 07:00 IntakeIntake Total 240 ml 650 ml OutputOutput Total 800 ml BalanceBalance -560 ml 650 ml Results Results 24hrs Laboratory Tests Test 09/11/18 22:45 09/12/18 05:48 Urine Color YELLOW Urine Clarity CLEAR Urine pH 7.0 Urine Specific [place] 1.018 Urine Ketones NEGATIVE Urine Nitrite NEGATIVE Urine Bilirubin NEGATIVE Urine Urobilinogen NEGATIVE Urine Leukocyte Esterase NEGATIVE Urine Microscopic RBC 11 H Urine Microscopic WBC 0 Urine Hemoglobin 3+ H Urine Glucose NEGATIVE Urine Total Protein NEGATIVE White Blood Count 7.6 Red Blood Count 4.50 L Hemoglobin 14.2 Hematocrit 40.2 L Mean Corpuscular Volume 89.3 Mean Corpuscular Hemoglobin 31.6 Mean Corpuscular Hemoglobin Concent 35.3 Red Cell Distribution Width 12.5 Platelet Count 163 Mean Platelet Volume 9.2 Immature Granulocytes % 0.400 Neutrophils % 67.8 Lymphocytes % 21.0 Monocytes % 9.1 Eosinophils % 1.3 Basophils % 0.4 Nucleated Red Blood Cells % 0.0 Immature Granulocytes # 0.030 Neutrophils # 5.2 Lymphocytes # 1.6 Monocytes # 0.7 Eosinophils # 0.1 Basophils # 0.0 Nucleated Red Blood Cells # 0.0 Sodium Level 141 Potassium Level 3.5 Chloride Level 104 Carbon Dioxide Level 25 Anion Gap 12 Blood Urea Nitrogen 6 L Creatinine 0.74 Est Glomerular Filtrat Rate mL/min Glucose Level 92 Calcium Level 9.2 Total Bilirubin 1.0 Direct Bilirubin 0.00 Indirect Bilirubin 1.0 Aspartate Amino Transf (AST/SGOT) 89 H Alanine Aminotransferase (ALT/SGPT) 165 H Alkaline Phosphatase 208 H Total Protein 6.6 Albumin 3.7 Globulin 2.90 Albumin/Globulin Ratio 1.27 Triglycerides Level 110 Cholesterol Level 190 LDL Cholesterol, Calculated 116 HDL Cholesterol 52 Cholesterol/HDL Ratio 3.6 Thyroid Stimulating Hormone (TSH) 4.360 Medications Medication Current Medications Aspirin (Halfprin) 81 mg DAILY PO Last administered on 09/12/18at 10:04; Admin Dose 81 MG; Start 09/12/18 at 09:00 Clopidogrel Bisulfate (plaVIX) 75 mg DAILY PO Last administered on 09/12/18at 10:03; Admin Dose 75 MG; Start 09/12/18 at 09:00 Acetaminophen (Tylenol Tab) 650 mg Q4H PRN PO PAIN; Start 09/11/18 at 11:30 Oxycodone/ Acetaminophen (Percocet (5/ 325)) 1 tab Q4H PRN PO PAIN; Start 09/11/18 at 11:30 Zolpidem Tartrate (Ambien) 5 mg HS MAY REPEAT X 1 PRN PO INSOMNIA Last administered on 09/12/18at 03:04; Admin Dose 5 MG; Start 09/11/18 at 11:30 Al Hydrox/Mg Hydrox/Simethicone (Mag-Al Plus) 30 ml Q4H PRN PO GASTROINTESTINAL UPSET; Start 09/11/18 at 11:30 Ondansetron HCl (Zofran Inj) 4 mg Q4H PRN IV NAUSEA AND/OR VOMITING; Start 09/11/18 at 11:30 Alprazolam (Xanax) 0.5 mg QHS PO ; Start 09/12/18 at 21:00 Amlodipine Besylate (Norvasc) 5 mg DAILY PO Last administered on 09/12/18at 10:04; Admin Dose 5 MG; Start 09/12/18 at 09:00 Metoprolol Succinate (Toprol Xl) 25 mg DAILY PO Last administered on 09/12/18at 10:04; Admin Dose 25 MG; Start 09/12/18 at 09:00 Prednisolone (Prelone (Ped)) 20 mg BID PO ; Start 09/12/18 at 09:00 CARMEN KNIGHT Sep 12, 2018 12:45
--- NOTE | 2018-09-12 13:50 | RADRPT ---
Vent Rate: 77 bpm RR Interval: 784 msec TX Interval: 190 msec QRS Duration: 83 msec QT Interval: 385 msec QTC Interval: 435 msec P-R-T Lookout: 41 - 18 - 30 degrees Sinus rhythm...normal P axis, V-rate 50- 99 Electronically Signed By: Tung Wade
--- NOTE | 2018-09-12 14:06 | CONS ---
Assessment/Plan Assessment/Plan Hospital Course (Demo Recall) IMP: 1.POD# 1 s/p stent x 1 toLAD and x 2 to LCX 2.HTN-mildly elevated today 3.Elevated LFT's- 4.HL- statin held due to elevated LFT's 5.anxiety Recc: -OK for d/c with outpatient f/u this sunday -Hold statin given elevated LFT's and will repeat LFT's in next 2-3 weeks -Continue BB/Norvasc -Continue asa/plavix Consultation Date/Type/Reason Admit Date/Time Sep 11, 2018 at 11:10 Initial Consult Date 11/11/18 Type of Consult Cardiology Reason for Consultation s/p stent Requesting Provider: ELIO ALFONSO MD Date/Time of Note DATE: 09/12/18 TIME: 13:57 Exam/Review of Systems Vital Signs Vitals Vital Signs Date Temp Pulse Resp B/P (MAP) Pulse Ox O2 O2 Flow FiO2 Time Delivery Rate 09/12/18 98.4 70 19 147/83 96 11:35 (104) 09/12/18 Room Air 07:51 Intake and Output 09/11/18 09/11/18 09/12/18 1515:00 23:00 07:00 IntakeIntake Total 240 ml 650 ml OutputOutput Total 800 ml BalanceBalance -560 ml 650 ml Exam Exam Review of Systems: CONSTITUTIONAL: No fevers, chills. PULMONARY: No sob CARDIOVASCULAR: No chest pain/palpitations GASTROINTESTINAL: No nausea/vomiting. GENITOURINARY: No hematuria/dysuria. MUSCULOSKELETAL: No myagias/arthalgias. PSYCHIATRIC: The patient denies depression. NEUROLOGIC: No weakness Constitutional: alert Psych: no complaints Head: normocephalic ENMT: mucosa pink and moist Neck: supple, jvd (9 cm water) Respiratory: clear to auscultation Cardiovascular: regular rate and rhythm Gastrointestinal: soft, non-tender Musculoskeletal: muscle tone (normal) Extremities: edema (none) Neurological: other (No focal defoicits) Labs Result Diagram: 09/12/18 0548 09/12/18 0548 Results 24hrs Laboratory Tests Test 09/11/18 22:45 09/12/18 05:48 Urine Color YELLOW Urine Clarity CLEAR Urine pH 7.0 Urine Specific [place] 1.018 Urine Ketones NEGATIVE Urine Nitrite NEGATIVE Urine Bilirubin NEGATIVE Urine Urobilinogen NEGATIVE Urine Leukocyte Esterase NEGATIVE Urine Microscopic RBC 11 H Urine Microscopic WBC 0 Urine Hemoglobin 3+ H Urine Glucose NEGATIVE Urine Total Protein NEGATIVE White Blood Count 7.6 Red Blood Count 4.50 L Hemoglobin 14.2 Hematocrit 40.2 L Mean Corpuscular Volume 89.3 Mean Corpuscular Hemoglobin 31.6 Mean Corpuscular Hemoglobin Concent 35.3 Red Cell Distribution Width 12.5 Platelet Count 163 Mean Platelet Volume 9.2 Immature Granulocytes % 0.400 Neutrophils % 67.8 Lymphocytes % 21.0 Monocytes % 9.1 Eosinophils % 1.3 Basophils % 0.4 Nucleated Red Blood Cells % 0.0 Immature Granulocytes # 0.030 Neutrophils # 5.2 Lymphocytes # 1.6 Monocytes # 0.7 Eosinophils # 0.1 Basophils # 0.0 Nucleated Red Blood Cells # 0.0 Sodium Level 141 Potassium Level 3.5 Chloride Level 104 Carbon Dioxide Level 25 Anion Gap 12 Blood Urea Nitrogen 6 L Creatinine 0.74 Est Glomerular Filtrat Rate mL/min Glucose Level 92 Calcium Level 9.2 Total Bilirubin 1.0 Direct Bilirubin 0.00 Indirect Bilirubin 1.0 Aspartate Amino Transf (AST/SGOT) 89 H Alanine Aminotransferase (ALT/SGPT) 165 H Alkaline Phosphatase 208 H Total Protein 6.6 Albumin 3.7 Globulin 2.90 Albumin/Globulin Ratio 1.27 Triglycerides Level 110 Cholesterol Level 190 LDL Cholesterol, Calculated 116 HDL Cholesterol 52 Cholesterol/HDL Ratio 3.6 Thyroid Stimulating Hormone (TSH) 4.360 Medications Medications Current Medications Aspirin (Halfprin) 81 mg DAILY PO Last administered on 09/12/18at 10:04; Admin Dose 81 MG; Start 09/12/18 at 09:00 Clopidogrel Bisulfate (plaVIX) 75 mg DAILY PO Last administered on 09/12/18at 10:03; Admin Dose 75 MG; Start 09/12/18 at 09:00 Acetaminophen (Tylenol Tab) 650 mg Q4H PRN PO PAIN; Start 09/11/18 at 11:30 Oxycodone/ Acetaminophen (Percocet (5/ 325)) 1 tab Q4H PRN PO PAIN; Start 09/11/18 at 11:30 Zolpidem Tartrate (Ambien) 5 mg HS MAY REPEAT X 1 PRN PO INSOMNIA Last administered on 09/12/18at 03:04; Admin Dose 5 MG; Start 09/11/18 at 11:30 Al Hydrox/Mg Hydrox/Simethicone (Mag-Al Plus) 30 ml Q4H PRN PO GASTROINTESTINAL UPSET; Start 09/11/18 at 11:30 Ondansetron HCl (Zofran Inj) 4 mg Q4H PRN IV NAUSEA AND/OR VOMITING; Start 09/11/18 at 11:30 Alprazolam (Xanax) 0.5 mg QHS PO ; Start 09/12/18 at 21:00 Amlodipine Besylate (Norvasc) 5 mg DAILY PO Last administered on 09/12/18at 10 :04; Admin Dose 5 MG; Start 09/12/18 at 09:00 Metoprolol Succinate (Toprol Xl) 25 mg DAILY PO Last administered on 09/12/18at 10:04; Admin Dose 25 MG; Start 09/12/18 at 09:00 Prednisolone (Prelone (Ped)) 20 mg BID PO ; Start 09/12/18 at 09:00 CAMERON MEDINA Sep 12, 2018 14:06
[2018-09-12] MEDS ORDERED: ATORVASTATIN 80 MG TAB PO SCH (21:00)
[2018-09-12] MEDS ORDERED: ALPRAZOLAM 0.5 MG TAB PO SCH (21:00)
--- NOTE | 2018-09-13 03:43 | DS ---
DATE OF ADMISSION: 09/11/2018 DATE OF DISCHARGE: 09/12/2018 This patient left against medical advice. DISCHARGE DIAGNOSES: 1. Coronary artery disease, status post percutaneous coronary intervention and placement of drug-el uting stent x1 to proximal LAD and drug-eluting stent x2 to distal circumflex. 2. Coronary artery disease, status post percutaneous coronary intervention and stenting of LAD in . 3. Hypertension. 4. Dyslipidemia. 5. Elevated liver enzymes. DISCHARGE MEDICATIONS: The patient to continue home medication as before except statins, and will ne ed reassessment by his PMD and medical insurance biller to resume statins at a later date with maybe a smaller do se and close monitoring of liver functions. His elevated liver enzymes have improved since admission after holding off statins. CHIEF COMPLAINT AND HISTORY OF PRESENT ILLNESS: The patient is a 78-year-old gentleman with history of coronary artery disease, status post PCI and stenting of LAD back in 2014 and subsequently was not ed to have a nuclear stress test due to chest pain. The patient was diagnosed with inferolateral isc hemia. The patient was brought into hospital on 09/18/2018 and underwent PCI and placement of drug-e luting stent x1 to proximal LAD and drug-eluting stent x2 to distal circumflex. The patient incident ally was also noted to have elevated liver enzymes with AST 26, alkaline phosphatase 221, ALT 236. S tatins were withheld. The patient was continued on aspirin, Plavix, Norvasc, and Toprol as at home. The patient remained chest pain free. LABORATORY DATA: Followup lab this morning revealed WBC 7.6, hemoglobin 14.2, platelet 163. Sodium 140, potassium 3.5, BUN 6, creatinine 0.7, AST 89 down from 156, ALT was 65 down from 236, alkaline p hosphatase 208 down from 221. Lipid panel revealed LDL of 116. TSH was 4.3. The patient was cleare d for discharge; however, did not want to wait for discharge process and left AMA. PHYSICAL EXAMINATION: VITAL SIGNS: Prior to leaving AMA, revealed temperature 98.4, pulse 70, respirations 19, blood press ure 140/73, O2 saturation 96% on room air. The patient, in fact, was seen by Dr. Medina this morning and his lungs were clear to auscultation. There was no leg edema and patient was cleared for discharge. Dictated By: ELIO ALFONSO MD AB/NTS Conf#: [id number] DID#: [id number] CC: CAMERON MEDINA MD;*EndCC*
== END 2018-09-12 15:00 | disposition left against medical advice (07) ==
LOC: SDS 07:38 → REC 11:10 → SDS 11:10 → TEL 13:23
PROVIDERS: ADMIT Internal Medicine; ATTEND Internal Medicine
DX: I25.10 Atherosclerotic heart disease of native coronary artery without angina pectoris (principal); Z95.5 Presence of coronary angioplasty implant and graft; I10 Essential (primary) hypertension; E78.5 Hyperlipidemia, unspecified
CPT/HCPCS: 71045; 80053; 80061; 81001; 82465; 84443; 84478; 85025; 85610; 85730; 93005; 93458; C1725; C1874; C1876; C1887; C9600; C9601; G0378; J1644; J2250; J3010; J7510; Q9967; 99217